=== PATIENT | female | born 1950 | race Asian ===

== ENCOUNTER 2017-07-21 07:06 | Emergency (ER) | payer SELFPAY ==
[~2017-07-21] VITALS: Ht 154.9 cm; Wt 62.7 kg
[2017-07-21] MEDS ORDERED: HYDR25TA PO (07:30)
[2017-07-21] MEDS ORDERED: RALO60 PO (07:30)
[2017-07-21 07:42] VITALS: BP 148/99
[2017-07-21] MEDS ORDERED: ACETAMINOPHEN 325 MG TABLET PO ONE (07:45)
== END 2017-07-21 07:55 | disposition home or self-care (01) ==
LOC: EMS 07:10
DX: S29.012A Strain of muscle and tendon of back wall of thorax, initial encounter (principal); I10 Essential (primary) hypertension; V49.9XXA Car occupant (driver) (passenger) injured in unspecified traffic accident, initial encounter; Y93.89 Activity, other specified; Y92.89 Other specified places as the place of occurrence of the external cause; Y99.8 Other external cause status
CPT/HCPCS: 99283